=== PATIENT | male | born 1985 | race African-American/Black ===

== ENCOUNTER 2017-07-31 12:20 | Outpatient (CLI) | payer OTHER ==
--- NOTE | 2017-07-31 22:15 | MRI Report ---
EXAM: MRI CERVICAL SPINE WITHOUT CONTRAST EXAM DATE: 07/31/2017 01:14 PM. CLINICAL HISTORY: Tingling of left arm, exacerbated by Spurling maneuver. COMPARISONS: None. TECHNIQUE: Multiplanar, multisequence T1-weighted and fluid-sensitive sequences of the cervical spine without contrast. Other: None. FINDINGS: Mucosal thickening is seen in the visualized sphenoid sinuses and in the visualized left maxillary si nus. No suspicious marrow replacement is identified in the cervical vertebral bodies. Accounting for motio n, no abnormal signal is seen in the cervical spinal cord. There is patchy edema involving the C6-C7 endplates towards the left. C2-C3: No posterior disk protrusion. C3-C4: A mild posterior disk protrusion is seen slightly greater towards the left. There is narrowing of the ventral CSF space. Central canal measures 9 mm. There is flattening of the ventral cervical s lucio cord. Bilateral uncovertebral joint spurring is seen. Minimal left foraminal stenosis is presen t. C4-C5: Left uncovertebral joint spurring is seen. Minimal left foraminal stenosis is present. C5-C6: A minimal posterior disk protrusion is seen. Bilateral uncovertebral joint spurring results in minimal right and mild left foraminal stenosis. Central canal measures 9 mm. C6-C7: A mild posterior disk protrusion is seen. Central canal measures 9 mm. Bilateral uncovertebral joint spurring is seen. Mild bilateral foraminal stenosis is seen greater on the right relative to t he left. C7-T1: No posterior disk protrusion is seen. Posterior longitudinal ligament hypertrophy is seen at C6. There is prominent soft tissue in the nasopharynx. This is fairly symmetric. On the axial images, the re is mild prominence of the palatine tonsil bilaterally. IMPRESSION: 1. Degenerative disk disease is seen at C3-C4, C5-C6, and at C6-C7. 2. Scattered uncovertebral joint spurring is seen. 3. Multilevel foraminal stenosis is present. This is typically greater on the left relative to the ri ght. 4. Accounting for motion artifact, no abnormal signal is seen in the cervical spinal cord. 5. Prominent soft tissues in the nasopharynx might well reflect lymphoid hyperplasia. A similar findi ng is seen in the palatine tonsils. 6. Paranasal sinus mucosal thickening [facility] Referring Provider Line: [phone] SITE ID: [id number]
== END 2017-07-31 12:21 | disposition home or self-care (01) ==
LOC: DI 12:20
PROVIDERS: ATTEND General Practice
DX: M50.21 Other cervical disc displacement, high cervical region (principal); M50.31 Other cervical disc degeneration, high cervical region
CPT/HCPCS: 72141